=== PATIENT | male | born 1950 | race American Indian/Alaskan Native ===

== ENCOUNTER 2017-01-07 12:39 | Outpatient (CLI) | payer MEDICARE ==
[2017-01-07 13:23] LABS: Blood Urea Nitrogen 9 mg/dL (9-20)
[2017-01-07] MEDS ORDERED: NACL ONE (13:24)
--- NOTE | 2017-01-07 14:19 | Cat Scan Report ---
CT HEAD WITH AND WITHOUT CONTRAST INDICATION: Dizziness. Lung cancer. Evaluate for brain metastases. COMPARISON: 10/30/2016. FINDINGS: Pre-and post contrast head CT demonstrates stable age appropriate ventricle and sulci with mild periventricular and few white matter hypodense small vessel ischemic disease. No definite acute infarct, hemorrhage, mass effect or midline shift. No abnormal extra-axial masses or fluid collections. No suspicious abnormal enhancement. Normal posterior fossa with preserved basilar cisterns. Slight leftward nasal septal bowing and possibly partially imaged left-sided septal spur. Slight left ethmoid sinusitis. Otherwise clear paranasal sinuses and mastoid air cells. Atherosclerotic internal carotid artery calcifications. Normal calvarium and scalp. Edentulous jaw. Cervical spondylosis. CONCLUSION: No acute intracranial CT abnormality or significant interval change with age-appropriate atrophy and microvascular changes again noted, as described. Please correlate. Thank you for the opportunity to participate in this patient's care.
== END 2017-01-07 12:40 | disposition home or self-care (01) ==
LOC: CT 12:39
DX: C34.32 Malignant neoplasm of lower lobe, left bronchus or lung (principal); I25.10 Atherosclerotic heart disease of native coronary artery without angina pectoris; J32.2 Chronic ethmoidal sinusitis; M47.892 Other spondylosis, cervical region
CPT/HCPCS: 36415; 70470; 82565; 84520; Q9967

== ENCOUNTER 2017-04-30 07:04 | Outpatient (CLI) | payer MEDICARE ==
[2017-04-30] MEDS ORDERED: NACL ONE (07:46)
[2017-04-30 07:57] LABS: Blood Urea Nitrogen 7 mg/dL (9-20)
--- NOTE | 2017-04-30 09:12 | Cat Scan Report ---
CT CHEST WITH CONTRAST: HISTORY: Restaging of lung cancer. TECHNIQUE: Helical CT following IV contrast. Sagittal and coronal reformatted images. FINDINGS: Compared to 11/19/16. The left lower lobe mass has decreased from 3.3 x 2.2 x 5.4 cm to 3.2 x 2.1 x 5.1 cm. Small left pleural effusion has resolved. There are moderate emphysematous changes bilaterally. No evidence for new nodule, infiltrate or pneumothorax. The thyroid gland, tracheobronchial tree, esophagus, heart, pericardium and mediastinal vessels are unremarkable. No mediastinal adenopathy has developed. The bony structures are intact. No suspicious bony lesions is appreciated. No abnormalities are noted within the upper abdomen. The adrenal glands are normal. IMPRESSION: Slight interval decrease in size of the left lower lobe mass. A small left pleural effusion has resolved. No new acute process or new metastatic disease is appreciated.
== END 2017-04-30 07:05 | disposition home or self-care (01) ==
LOC: CT 07:04
DX: C34.32 Malignant neoplasm of lower lobe, left bronchus or lung (principal); F17.200 Nicotine dependence, unspecified, uncomplicated
CPT/HCPCS: 36415; 71260; 82565; 84520; Q9967

== ENCOUNTER 2017-08-24 10:52 | Outpatient (CLI) | payer MEDICARE ==
[2017-08-24 11:47] LABS: Blood Urea Nitrogen 7 mg/dL (9-20)
--- NOTE | 2017-08-24 14:30 | Cat Scan Report ---
CT CHEST WITH CONTRAST: HISTORY: Lung cancer. COMPARISON: 04/30/17. TECHNIQUE: Helical CT in 1.25mm intervals following IV contrast. Sagittal and coronal reformatted images. FINDINGS: Thyroid gland: Normal. Tracheobronchial tree: Normal. Esophagus: Normal. Heart: Normal. Pericardium: Normal. Mediastinum: Normal. Lung Rowe: The right lung is clear and well-aerated. There is compressive atelectasis throughout most of the left lung. Pleural Spaces: A very large left pleural effusion has developed which compresses 75% or greater of the left lung. Only a small portion of the left upper lobe is aerated. There is mild diffuse pleural thickening with enhancement which probably represents pleural metastasis. The previously described left lower lobe mass is poorly imaged on this exam secondary to complete atelectasis of the left lower lobe. Musculoskeletal: Normal. IMPRESSION: A large left pleural effusion has developed since 08/24/17. Diffuse left pleural metastasis are suspected. Left lower lobe mass is poorly imaged secondary to the collapsed left lower lobe.
== END 2017-08-24 10:53 | disposition home or self-care (01) ==
LOC: CT 10:52
DX: C34.32 Malignant neoplasm of lower lobe, left bronchus or lung (principal); J98.11 Atelectasis; J90 Pleural effusion, not elsewhere classified
CPT/HCPCS: 36415; 71260; 82565; 84520; Q9967

== ENCOUNTER 2017-09-01 11:53 | Inpatient (IN) | payer MEDICARE ==
[2017-09-01 13:34] LABS: Eosinophils % (Auto) 2.8 % (0.0-4.3)
[2017-09-01 13:42] LABS: INR 0.95 (0.87-1.13); Partial Thromboplastin Time 27.5 Sec. (24.2-36.6)
[2017-09-01 13:43] LABS: Hematocrit 45.8 % (35.5-45.6); Hemoglobin 15.3 gm/dl (11.8-15.2); Mean Corpuscular HGB Conc 33 % (32-34); Mean Corpuscular Hemoglobin 34 pg (28-32); Mean Corpuscular Volume 102 fl (84-94); Platelet Count 91 K/mm3 (140-440); Red Blood Count 4.48 M/mm3 (3.65-5.03); Red Cell Distribution Width 17.8 % (13.2-15.2); White Blood Count 5.3 K/mm3 (4.5-11.0)
[2017-09-01 13:55] LABS: Alanine Aminotransferase 29 units/L (7-56); Albumin 3.2 g/dL (3.9-5); Albumin/Globulin Ratio 0.8 %; Alkaline Phosphatase 194 units/L (35-129); Anion Gap 24 mmol/L; BUN/Creatinine Ratio 12; Bilirubin,Direct 0.5 mg/dL (0-0.2); Bilirubin,Indirect 0.7 mg/dL; Blood Urea Nitrogen 6 mg/dL (9-20); Calcium 8.7 mg/dL (8.4-10.2); Carbon Dioxide 25 mmol/L (22-30); Chloride 93.4 mmol/L (98-107); Glucose 97 mg/dL (75-100); Potassium 3.9 mmol/L (3.6-5.0); Sodium 138 mmol/L (137-145); Total Protein 7.1 g/dL (6.3-8.2)
[2017-09-01 14:22] LABS: Bilirubin,Urine NEG (Negative); Blood,Urine NEG (Negative); Ketones,Urine NEG (Negative); Leukocyte Esterase,Urine NEG (Negative); Nitrite,Urine NEG (Negative); Protein,Urine <15 mg/dL mg/dL (Negative)
--- NOTE | 2017-09-01 15:15 | XRay Report ---
AP CHEST : 09/01/17 11:53:00 CLINICAL: Hypertension. COMPARISON:08/24/17 CT chest FINDINGS: Near complete opacification of left hemithorax as seen on the recent chest CT which demonstrated a very large loculated left pleural effusion with compressive atelectasis of the left lung.. Some residual aeration in the left upper lobe. The right lung is normally expanded and relatively clear. No air space disease. The heart is normal size. Normal pulmonary vessels. A right [id number] with the tip in the distal SVC. IMPRESSION: A large left pleural effusion and near complete atelectasis of the left lung. No significant change since the recent CT chest.
[2017-09-01] MEDS ORDERED: PROVENTIL IH PRN (15:27)
[2017-09-01] MEDS ORDERED: MORPHINE IV PRN (15:27)
[2017-09-01] MEDS ORDERED: ZOFRAN IV PRN (15:27)
[2017-09-01] MEDS ORDERED: TYLENOL PO PRN (15:27)
--- NOTE | 2017-09-01 15:33 | Emergency Department Report ---
ED General Adult HPI - General Chief complaint: Dyspnea/Respdistress Stated complaint: FLUID ON LUNGS Time Seen by Provider: 09/01/17 12:51 Source: patient, EMS Mode of arrival: Stretcher Limitations: No Limitations - History of Present Illness Initial comments: Patient states that he had a CT of his chest performed here. It was actually done on September [address] GARCIA. He called Dr. GARCIA today was instructed to come to the emergency department. He tells me he's had some dizziness and some headache. He states the headache has been essentially generalized. He is not complaining of headache now. He was found to have a very large recurrent effusion (apparently malignant) in his left lung. He states that he does have dyspnea on exertion but not at rest. -: days(s) Location: left (left pleural effusion but patient not complaining of chest pain at this time.) Severity scale (0 -10): 0 Improves with: none Worsens with: none Associated Symptoms: headaches, shortness of breath - Related Data Previous Rx's Medication Instructions Recorded Last Taken Type ALBUTEROL Inhaler [ProAir HFA 2 puff IH QID PRN #1 applicator 12/19/15 Unknown Rx Inhaler] Folic Acid [Folvite] 1 mg PO QDAY #30 tablet 11/02/16 Unknown Rx Potassium Chloride [K-Dur] 40 meq PO QDAY 5 Days tablet 11/02/16 Unknown Rx Thiamine [Vitamin B-1] 100 mg PO QDAY #30 tablet 11/02/16 Unknown Rx Allergies Allergy/AdvReac Type Severity Reaction Status Date / Time No Known Allergies Allergy Verified 06/09/14 13:23 ED Review of Systems ROS: Stated complaint: FLUID ON LUNGS Other details as noted in HPI Constitutional: denies: chills, fever Eyes: denies: eye pain, eye discharge, vision change ENT: denies: ear pain, throat pain Respiratory: SOB with exertion. denies: cough, wheezing Cardiovascular: denies: chest pain, palpitations Endocrine: no symptoms reported Gastrointestinal: denies: abdominal pain, nausea, diarrhea Genitourinary: denies: urgency, dysuria Musculoskeletal: denies: back pain, joint swelling, arthralgia Skin: denies: rash, lesions Neurological: headache. denies: weakness, paresthesias Psychiatric: denies: anxiety, depression Hematological/Lymphatic: denies: easy bleeding, easy bruising ED Past Medical Hx - Past Medical History Previous Medical History?: Yes Hx Liver Disease: Yes Hx of Cancer: Yes (lung cancer pleural effus.) Hx HIV: No Additional medical history: Alcoholism; cirrosis of liver. right retinal hemorrhage - Surgical History Past Surgical History?: Yes Hx Cholecystectomy: Yes - Social History Smoking Status: Current Every Day Smoker Substance Use Type: None - Medications Home Medications: Home Medications Medication Instructions Recorded Confirmed Last Taken Type ALBUTEROL Inhaler [ProAir HFA 2 puff IH QID PRN #1 applicator 12/19/15 10/30/16 Unknown Rx Inhaler] Folic Acid [Folvite] 1 mg PO QDAY #30 tablet 11/02/16 Unknown Rx Potassium Chloride [K-Dur] 40 meq PO QDAY 5 Days tablet 11/02/16 Unknown Rx Thiamine [Vitamin B-1] 100 mg PO QDAY #30 tablet 11/02/16 Unknown Rx ED Physical Exam - General Limitations: No Limitations General appearance: alert, in no apparent distress, cachectic - Head Head exam: Present: atraumatic, normocephalic - Eye Eye exam: Present: normal appearance. Absent: scleral icterus - ENT ENT exam: Present: mucous membranes moist - Neck Neck exam: Present: normal inspection. Absent: tenderness, meningismus - Respiratory Respiratory exam: Present: decreased breath sounds (decreased breath sounds on the left). Absent: respiratory distress - Cardiovascular Cardiovascular Exam: Present: regular rate, normal rhythm. Absent: systolic murmur, diastolic murmur, rubs, gallop - GI/Abdominal GI/Abdominal exam: Present: soft, normal bowel sounds. Absent: distended, tenderness, guarding, rebound, rigid - Rectal Rectal exam: Present: deferred - Extremities Exam Extremities exam: Present: normal inspection - Back Exam Back exam: Present: normal inspection - Neurological Exam Neurological exam: Present: alert, oriented X3, CN II-XII intact. Absent: motor sensory deficit - Psychiatric Psychiatric exam: Present: normal affect, normal mood - Skin Skin exam: Present: warm, dry, intact, normal color. Absent: rash ED Course Vital Signs 09/01/17 09/01/17 09/01/17 12:15 13:38 13:39 Temperature Pulse Rate 107 H Respiratory 20 17 16 Rate Blood Pressure 107/76 Blood Pressure [Right] O2 Sat by Pulse 96 95 Oximetry 09/01/17 09/01/17 09/01/17 13:45 14:00 14:01 Temperature 97.9 F Pulse Rate 94 H 99 H 100 H Respiratory 15 20 16 Rate Blood Pressure 96/64 104/71 Blood Pressure 99/72 [Right] O2 Sat by Pulse 96 90 95 Oximetry - Reevaluation(s) Reevaluation #1: Patient is found to have a large presumably malignant effusion. He is admitted to the hospitalist service for drainage. In addition a CT of his head is ordered to help work up his symptoms of dizziness and headache. 09/01/17 15:31 09/01/17 15:33 CT with contrast is ordered. ED Medical Decision Making - Lab Data Result diagrams: 09/01/17 12:57 09/01/17 12:57 Laboratory Results - last 24 hr 09/01/17 09/01/17 09/01/17 12:57 12:57 12:57 WBC 5.3 RBC 4.48 Hgb 15.3 H Hct 45.8 H MCV 102 H MCH 34 H MCHC 33 RDW 17.8 H Plt Count 91 L Lymph % (Auto) 41.2 H [place] % (Auto) 10.7 H Eos % (Auto) 2.8 Baso % (Auto) 0.0 Lymph # 1.8 [place] # 0.5 Eos # 0.1 Baso # 0.0 Seg Neutrophils % 44.5 Seg Neutrophils # 1.9 PT 13.1 INR 0.95 APTT 27.5 Sodium 138 Potassium 3.9 Chloride 93.4 L Carbon Dioxide 25 Anion Gap 24 BUN 6 L Creatinine 0.5 L Estimated GFR > 60 BUN/Creatinine Ratio 12 Glucose 97 Calcium 8.7 Magnesium 2.00 Total Bilirubin 1.20 Direct Bilirubin 0.5 H Indirect Bilirubin 0.7 AST 144 H ALT 29 Alkaline Phosphatase 194 H NT-Pro-B Natriuret Pep 91.84 Total Protein 7.1 Albumin 3.2 L Albumin/Globulin Ratio 0.8 Urine Color Urine Turbidity Urine pH Ur Specific [place] Urine Protein Urine Glucose (UA) Urine Ketones Urine Blood Urine Nitrite Urine Bilirubin Urine Urobilinogen Ur Leukocyte Esterase Urine WBC (Auto) Urine RBC (Auto) Blood Type Antibody Screen 09/01/17 09/01/17 12:57 13:35 WBC RBC Hgb Hct MCV MCH MCHC RDW Plt Count Lymph % (Auto) [place] % (Auto) Eos % (Auto) Baso % (Auto) Lymph # [place] # Eos # Baso # Seg Neutrophils % Seg Neutrophils # PT INR APTT Sodium Potassium Chloride Carbon Dioxide Anion Gap BUN Creatinine Estimated GFR BUN/Creatinine Ratio Glucose Calcium Magnesium Total Bilirubin Direct Bilirubin Indirect Bilirubin AST ALT Alkaline Phosphatase NT-Pro-B Natriuret Pep Total Protein Albumin Albumin/Globulin Ratio Urine Color Yellow Urine Turbidity Clear Urine pH 6.0 Ur Specific [place] 1.008 Urine Protein <15 mg/dl Urine Glucose (UA) Neg Urine Ketones Neg Urine Blood Neg Urine Nitrite Neg Urine Bilirubin Neg Urine Urobilinogen 2.0 Ur Leukocyte Esterase Neg Urine WBC (Auto) 1.0 Urine RBC (Auto) 1.0 Blood Type O POSITIVE Antibody Screen Negative - EKG Data -: EKG Interpreted by Me EKG shows normal: sinus rhythm - EKG Data Interpretation: other (somewhat low voltage. Specific repolarization abnormality normal axis.) - Radiology Data interpreted by me: Large left pleural effusion Critical care attestation.: If time is entered above; I have spent that time in minutes in the direct care of this critically ill patient, excluding procedure time. ED Disposition Clinical Impression: Pleural effusion on left, Dizziness, Thrombocytopenia Metastatic lung cancer (metastasis from lung to other site) Qualifiers: Laterality: left Qualified Code(s): C34.92 - Malignant neoplasm of unspecified part of left bronchus or lung Cephalalgia Qualifiers: Headache type: unspecified Headache chronicity pattern: acute headache Intractability: not intractable Qualified Code(s): R51 - Headache Disposition: OP ADMIT IP TO THIS HOSP Is pt being admited?: Yes Does the pt Need Aspirin: No (held due to thrombocytopenia) Condition: Stable Time of Disposition: 15:38
--- NOTE | 2017-09-01 16:12 | History and Physical Report ---
History of Present Illness Date of admission: 09/01/17 15:27 Chief complaint: My doctor told me to come in. History of present illness: 67 YO Male with Lung Cancer, ETOH Abuse, cirrhosis, Liver disease, Nicotine Dependence presents to ED for evaluation. Pt states that he underwent a CT scan of his chest, on September 24 which was ordered by Dr. GARCIA. Pt was notified today by Dr. GARCIA today that he has a large amount of fluid in the left lung, and was advised to seek medical attention at [facility]. Pt denies fever, chills, CP, Palpitations, NVD, Syncope, Productive cough, or recent ill contacts. Pt denies any new symptoms at time of exam. Pt seen and evaluated in ED and found to have large left pleural effusion. Past History Past Medical History: cancer, other (Cirrhosis) Past Surgical History: cholecystectomy Social history: , smoking, alcohol abuse Family history: hypertension Medications and Allergies Allergies Allergy/AdvReac Type Severity Reaction Status Date / Time No Known Allergies Allergy Verified 06/09/14 13:23 Home Medications Medication Instructions Recorded Confirmed Last Taken Type No Known Home Medications [No 09/01/17 09/01/17 Unknown History Reported Home Medications] Active Meds: Active Medications Acetaminophen (Tylenol) 650 mg PO Q4H PRN PRN Reason: Pain MILD(1-3)/Fever >100.5/TRAVIS Albuterol (Proventil) 2.5 mg IH Q4HRT PRN PRN Reason: Shortness Of Breath Morphine Sulfate (Morphine) 2 mg IV Q4H PRN PRN Reason: Pain, Moderate (4-6) Ondansetron HCl (Zofran) 4 mg IV Q8H PRN PRN Reason: N/V unrelieved by Reglan Review of Systems Constitutional: no weight loss, no weight gain, no fever, no chills Ears, nose, mouth and throat: no ear pain, no ear discharge, no tinnitis, no decreased hearing, no nose pain, no nasal congestion, no nasal discharge Cardiovascular: no chest pain, no orthopnea, no palpitations, no rapid/ irregular heart beat, no edema, no syncope Respiratory: no cough, no cough with sputum, no excessive sputum, no hemoptysis , no shortness of breath Gastrointestinal: no abdominal pain, no nausea, no vomiting, no diarrhea, no constipation Genitourinary Male: no dysuria, no hematuria, no flank pain, no discharge, no urinary frequency, no urinary hesitancy, no nocturia, no incontinence Rectal: no pain, no incontinence, no bleeding Musculoskeletal: no neck stiffness, no neck pain, no shooting arm pain, no arm numbness/tingling, no low back pain, no shooting leg pain Integumentary: no rash, no pruritis, no redness, no sores, no wounds, no jaundice Neurological: no head injury, no transient paralysis, no paralysis, no weakness , no parathesias, no numbness, no tingling Psychiatric: no anxiety, no memory loss, no change in sleep habits, no sleep disturbances, no insomnia, no hypersomnia, no change in appetite Endocrine: no cold intolerance, no heat intolerance, no polyphagia, no excessive thirst, no polydipsia Exam - Constitutional Vitals: Temp Pulse Resp BP Pulse Ox 97.9 F 97 H 19 97/69 97 09/01/17 14:01 09/01/17 15:45 09/01/17 15:45 09/01/17 15:45 09/01/17 15:30 General appearance: Present: mild distress, cachectic - EENT Eyes: Present: PERRL ENT: hearing intact, clear oral mucosa - Neck Neck: Present: supple, normal ROM - Respiratory Respiratory effort: normal Respiratory: left: diminished, bilateral: CTA - Cardiovascular Heart Sounds: Present: S1 & S2. Absent: rub, click - Extremities Extremities: pulses symmetrical, No edema Peripheral Pulses: within normal limits - Abdominal General gastrointestinal: Present: soft, non-tender, non-distended, normal bowel sounds Male genitourinary: Present: normal - Integumentary Integumentary: Present: clear, warm, dry - Musculoskeletal Musculoskeletal: gait normal, strength equal bilaterally - Psychiatric Psychiatric: appropriate mood/affect, intact judgment & insight - Neurologic Neurologic: CNII-XII intact, moves all extremities Results - Labs CBC & Chem 7: 09/01/17 12:57 09/01/17 12:57 Labs: Abnormal lab results 09/01/17 09/01/17 Range/Units 12:57 12:57 Hgb 15.3 H (11.8-15.2) gm/dl Hct 45.8 H (35.5-45.6) % MCV 102 H (84-94) fl MCH 34 H (28-32) pg RDW 17.8 H (13.2-15.2) % Plt Count 91 L (140-440) K/mm3 Lymph % (Auto) 41.2 H (13.4-35.0) % [place] % (Auto) 10.7 H (0.0-7.3) % Chloride 93.4 L (98-107) mmol/L BUN 6 L (9-20) mg/dL Creatinine 0.5 L (0.8-1.5) mg/dL Direct Bilirubin 0.5 H (0-0.2) mg/dL AST 144 H (5-40) units/L Alkaline Phosphatase 194 H (35-129) units/L Albumin 3.2 L (3.9-5) g/dL Assessment and Plan - Patient Problems (1) Respiratory failure Current Visit: Yes Status: Acute Plan to address problem: supplemental oxygen, nebs, aspiration precautions, supportive care. Chest X ray , (2) Metastatic lung cancer (metastasis from lung to other site) Current Visit: Yes Status: Acute Qualifiers: Laterality: left Qualified Code(s): C34.92 - Malignant neoplasm of unspecified part of left bronchus or lung Plan to address problem: Metastatic Cancer with Left Pleural Effusion: Pulmonary consulted, supplemental oxygen, nebs, IR consulted for thoracentesis, (3) Pleural effusion on left Current Visit: Yes Status: Acute Plan to address problem: IR consulted, for thoracentesis, Pulmonary consulted, (4) Alcohol abuse Current Visit: No Status: Chronic Plan to address problem: CIWA protocol, thiamine, folic acid, multivitamin (5) Alcoholic cirrhosis Current Visit: No Status: Chronic Qualifiers: Ascites presence: without ascites Qualified Code(s): K70.30 - Alcoholic cirrhosis of liver without ascites Plan to address problem: supportive care, fluid restriction, (6) DVT prophylaxis Current Visit: Yes Status: Acute
[2017-09-01] MEDS ORDERED: ATIVAN IV PRN (16:32)
--- NOTE | 2017-09-01 17:39 | Cat Scan Report ---
FINAL REPORT PROCEDURE: CT HEAD/BRAIN WO/W CON TECHNIQUE: Computerized axial tomography of the head was performed before and after the IV injection of iodinated nonionic contrast. HISTORY: dizziness, headache, low platelets, lung cancer COMPARISON: 12/13/2015 TECHNICAL QUALITY: Satisfactory. FINDINGS: Skull base, calvarium, and scalp: Normal . Paranasal sinuses: The visualized paranasal sinuses are clear. Cerebellum and brainstem: No evidence of hemorrhage, ischemia or mass . Cerebrum: No evidence of hemorrhage, ischemia or mass . Ventricles: Normal in size and morphology for the patient's age . Vasculature: Possible narrowing of the distal right vertebral artery axial image 6. If there is concern of possible vertebrobasilar insufficiency syndrome consider CTA study to further evaluate. Other: Moderate diffuse atrophy with mild low attenuated microischemic change deep white matter.. No abnormal enhancement IMPRESSION: No acute intracranial pathology. No abnormal enhancement. Possible mild narrowing of the distal right vertebral artery
[2017-09-02] MEDS: THERAGRAN Tab PO SCH ×2 (08:48→13:43)
[2017-09-02] MEDS: FOLVITE PO SCH ×2 (08:48→13:43)
[2017-09-02] MEDS: VITAMIN B-1 PO SCH ×2 (08:49→13:43)
--- NOTE | 2017-09-02 08:50 | Progress Note ---
<PAMELA CATALAN - Last Filed: 09/02/17 13:43> Assessment and Plan Assessment and plan: Patient is a 67 years old Male with Lung Cancer, ETOH Abuse, cirrhosis, Liver disease, Nicotine Dependence presents to ED for evaluation. Acute respiratory failure with hypoxia Patient oxygen saturation improved with 2LNC; currently SPO2 98%. No acute respiratory distress noted. Aggressive Nebulizers/Inhalers ABG when necessary Oxygen supplement Supportive care Metastatic lung cancer Metastatic Cancer with Left Pleural Effusion: Pulmonary consulted, supplemental Nebulizers/Inhalers IR consulted for thoracentesis, Pleural effusion on left IR consulted, for thoracentesis, Pulmonary consulted, Alcohol abuse CIWA protoco Continue thiamine, folic acid, multivitamin Supportive care Malnutition Nutritional consult Alcoholic cirrhosis Fluid restriction supportive care, Hypertensive urgency Continue home antihypertensive medications Closely monitor blood pressure DVT prophylaxis Heparin History Interval history: Patient denies having any pain; Labs and nursing notes reviewed. Hospitalist Physical - Constitutional Vitals: Temp Pulse Resp BP Pulse Ox 99.8 F H 108 H 19 104/73 96 09/02/17 07:37 09/02/17 07:37 09/02/17 07:37 09/02/17 07:37 09/02/17 07:37 General appearance: Present: mild distress, cachectic - EENT Eyes: Present: PERRL ENT: hearing intact - Neck Neck: Present: supple - Respiratory Respiratory effort: normal Respiratory: bilateral: CTA - Cardiovascular Rhythm: regular Heart Sounds: Present: S1 & S2 - Abdominal General gastrointestinal: soft, non-tender - Integumentary Integumentary: Present: clear, warm, dry - Psychiatric Psychiatric: appropriate mood/affect - Neurologic Neurologic: moves all extremities - Allied Health Allied health notes reviewed: nursing Results - Labs CBC & Chem 7: 09/02/17 09:24 09/01/17 12:57 Labs: Laboratory Last Values WBC 5.3 K/mm3 (4.5-11.0) 09/01/17 12:57 RBC 4.48 M/mm3 (3.65-5.03) 09/01/17 12:57 Hgb 15.3 gm/dl (11.8-15.2) H 09/01/17 12:57 Hct 45.8 % (35.5-45.6) H 09/01/17 12:57 MCV 102 fl (84-94) H 09/01/17 12:57 MCH 34 pg (28-32) H 09/01/17 12:57 MCHC 33 % (32-34) 09/01/17 12:57 RDW 17.8 % (13.2-15.2) H 09/01/17 12:57 Plt Count 91 K/mm3 (140-440) L 09/01/17 12:57 Lymph % (Auto) 41.2 % (13.4-35.0) H 09/01/17 12:57 [place] % (Auto) 10.7 % (0.0-7.3) H 09/01/17 12:57 Eos % (Auto) 2.8 % (0.0-4.3) 09/01/17 12:57 Baso % (Auto) 0.0 % (0.0-1.8) 09/01/17 12:57 Lymph # 1.8 K/mm3 (1.2-5.4) 09/01/17 12:57 [place] # 0.5 K/mm3 (0.0-0.8) 09/01/17 12:57 Eos # 0.1 K/mm3 (0.0-0.4) 09/01/17 12:57 Baso # 0.0 K/mm3 (0.0-0.1) 09/01/17 12:57 Seg Neutrophils % 44.5 % (40.0-70.0) 09/01/17 12:57 Seg Neutrophils # 1.9 K/mm3 (1.8-7.7) 09/01/17 12:57 PT 13.1 Sec. (12.2-14.9) 09/01/17 12:57 INR 0.95 (0.87-1.13) 09/01/17 12:57 APTT 27.5 Sec. (24.2-36.6) 09/01/17 12:57 Sodium 138 mmol/L (137-145) 09/01/17 12:57 Potassium 3.9 mmol/L (3.6-5.0) 09/01/17 12:57 Chloride 93.4 mmol/L (98-107) L 09/01/17 12:57 Carbon Dioxide 25 mmol/L (22-30) 09/01/17 12:57 Anion Gap 24 mmol/L 09/01/17 12:57 BUN 6 mg/dL (9-20) L 09/01/17 12:57 Creatinine 0.5 mg/dL (0.8-1.5) L 09/01/17 12:57 Estimated GFR > 60 ml/min 09/01/17 12:57 BUN/Creatinine Ratio 12 % 09/01/17 12:57 Glucose 97 mg/dL (75-100) 09/01/17 12:57 Calcium 8.7 mg/dL (8.4-10.2) 09/01/17 12:57 Magnesium 2.00 mg/dL (1.7-2.3) 09/01/17 12:57 Total Bilirubin 1.20 mg/dL (0.1-1.2) 09/01/17 12:57 Direct Bilirubin 0.5 mg/dL (0-0.2) H 09/01/17 12:57 Indirect Bilirubin 0.7 mg/dL 09/01/17 12:57 AST 144 units/L (5-40) H 09/01/17 12:57 ALT 29 units/L (7-56) 09/01/17 12:57 Alkaline Phosphatase 194 units/L (35-129) H 09/01/17 12:57 NT-Pro-B Natriuret Pep 91.84 pg/mL (0-900) 09/01/17 12:57 Total Protein 7.1 g/dL (6.3-8.2) 09/01/17 12:57 Albumin 3.2 g/dL (3.9-5) L 09/01/17 12:57 Albumin/Globulin Ratio 0.8 % 09/01/17 12:57 Urine Color Yellow (Yellow) 09/01/17 13:35 Urine Turbidity Clear (Clear) 09/01/17 13:35 Urine pH 6.0 (5.0-7.0) 09/01/17 13:35 Ur Specific [place] 1.008 (1.003-1.030) 09/01/17 13:35 Urine Protein <15 mg/dl mg/dL (Negative) 09/01/17 13:35 Urine Glucose (UA) Neg mg/dL (Negative) 09/01/17 13:35 Urine Ketones Neg mg/dL (Negative) 09/01/17 13:35 Urine Blood Neg (Negative) 09/01/17 13:35 Urine Nitrite Neg (Negative) 09/01/17 13:35 Urine Bilirubin Neg (Negative) 09/01/17 13:35 Urine Urobilinogen 2.0 mg/dL (<2.0) 09/01/17 13:35 Ur Leukocyte Esterase Neg (Negative) 09/01/17 13:35 Urine WBC (Auto) 1.0 /HPF (0.0-6.0) 09/01/17 13:35 Urine RBC (Auto) 1.0 /HPF (0.0-6.0) 09/01/17 13:35 Blood Type O POSITIVE 09/01/17 12:57 Antibody Screen Negative 09/01/17 12:57 <MARITZA GR - Last Filed: 09/02/17 17:28> History Interval history: I saw and evaluated the patient. I agree with the findings and the plan of care as documented in the Nurse Practitioner's~note, with the following corrections and additions. Patient has large left pleural effusion, s/p thoracentesis today. Continue current management. Hospitalist Physical - Constitutional Vitals: Temp Pulse Resp BP Pulse Ox 99.6 F 115 H 19 104/71 95 09/02/17 15:35 09/02/17 15:35 09/02/17 15:35 09/02/17 15:35 09/02/17 15:35 Results - Labs CBC & Chem 7: 09/02/17 09:24 09/01/17 12:57 Labs: Laboratory Last Values WBC 5.0 K/mm3 (4.5-11.0) 09/02/17 09:24 RBC 4.32 M/mm3 (3.65-5.03) 09/02/17 09:24 Hgb 14.9 gm/dl (11.8-15.2) 09/02/17 09:24 Hct 44.3 % (35.5-45.6) 09/02/17 09:24 MCV 102 fl (84-94) H 09/02/17 09:24 MCH 34 pg (28-32) H 09/02/17 09:24 MCHC 34 % (32-34) 09/02/17 09:24 RDW 17.8 % (13.2-15.2) H 09/02/17 09:24 Plt Count 85 K/mm3 (140-440) L 09/02/17 09:24 Lymph % (Auto) 22.8 % (13.4-35.0) 09/02/17 09:24 [place] % (Auto) 9.4 % (0.0-7.3) H 09/02/17 09:24 Eos % (Auto) 1.1 % (0.0-4.3) 09/02/17 09:24 Baso % (Auto) 0.8 % (0.0-1.8) 09/02/17 09:24 Lymph # 1.1 K/mm3 (1.2-5.4) L 09/02/17 09:24 [place] # 0.5 K/mm3 (0.0-0.8) 09/02/17 09:24 Eos # 0.1 K/mm3 (0.0-0.4) 09/02/17 09:24 Baso # 0.0 K/mm3 (0.0-0.1) 09/02/17 09:24 Seg Neutrophils % 65.9 % (40.0-70.0) 09/02/17 09:24 Seg Neutrophils # 3.3 K/mm3 (1.8-7.7) 09/02/17 09:24 PT 13.1 Sec. (12.2-14.9) 09/02/17 09:24 INR 0.95 (0.87-1.13) 09/02/17 09:24 APTT 28.1 Sec. (24.2-36.6) 09/02/17 09:24 Sodium 138 mmol/L (137-145) 09/01/17 12:57 Potassium 3.9 mmol/L (3.6-5.0) 09/01/17 12:57 Chloride 93.4 mmol/L (98-107) L 09/01/17 12:57 Carbon Dioxide 25 mmol/L (22-30) 09/01/17 12:57 Anion Gap 24 mmol/L 09/01/17 12:57 BUN 6 mg/dL (9-20) L 09/01/17 12:57 Creatinine 0.5 mg/dL (0.8-1.5) L 09/01/17 12:57 Estimated GFR > 60 ml/min 09/01/17 12:57 BUN/Creatinine Ratio 12 % 09/01/17 12:57 Glucose 97 mg/dL (75-100) 09/01/17 12:57 Calcium 8.7 mg/dL (8.4-10.2) 09/01/17 12:57 Magnesium 2.00 mg/dL (1.7-2.3) 09/01/17 12:57 Total Bilirubin 1.20 mg/dL (0.1-1.2) 09/01/17 12:57 Direct Bilirubin 0.5 mg/dL (0-0.2) H 09/01/17 12:57 Indirect Bilirubin 0.7 mg/dL 09/01/17 12:57 AST 144 units/L (5-40) H 09/01/17 12:57 ALT 29 units/L (7-56) 09/01/17 12:57 Alkaline Phosphatase 194 units/L (35-129) H 09/01/17 12:57 NT-Pro-B Natriuret Pep 91.84 pg/mL (0-900) 09/01/17 12:57 Total Protein 7.1 g/dL (6.3-8.2) 09/01/17 12:57 Albumin 3.2 g/dL (3.9-5) L 09/01/17 12:57 Albumin/Globulin Ratio 0.8 % 09/01/17 12:57 Urine Color Yellow (Yellow) 09/01/17 13:35 Urine Turbidity Clear (Clear) 09/01/17 13:35 Urine pH 6.0 (5.0-7.0) 09/01/17 13:35 Ur Specific [place] 1.008 (1.003-1.030) 09/01/17 13:35 Urine Protein <15 mg/dl mg/dL (Negative) 09/01/17 13:35 Urine Glucose (UA) Neg mg/dL (Negative) 09/01/17 13:35 Urine Ketones Neg mg/dL (Negative) 09/01/17 13:35 Urine Blood Neg (Negative) 09/01/17 13:35 Urine Nitrite Neg (Negative) 09/01/17 13:35 Urine Bilirubin Neg (Negative) 09/01/17 13:35 Urine Urobilinogen 2.0 mg/dL (<2.0) 09/01/17 13:35 Ur Leukocyte Esterase Neg (Negative) 09/01/17 13:35 Urine WBC (Auto) 1.0 /HPF (0.0-6.0) 09/01/17 13:35 Urine RBC (Auto) 1.0 /HPF (0.0-6.0) 09/01/17 13:35 Blood Type O POSITIVE 09/01/17 12:57 Antibody Screen Negative 09/01/17 12:57
--- NOTE | 2017-09-02 09:16 | Hem/Onc Consultation ---
History of Present Illness - Reason for Consult Consult date: 09/02/17 - History of Present Illness Patient is a 67-year-old male who in 2016 was diagnosed with non-small cell lung cancer. It was an adenocarcinoma. All the information is gathered from the hospital chart since the patient is not able to give a good history. He has been on chemotherapy for some time he states but has recently been switched to another therapy which she got 1 dose of. I presume that his immunotherapy. Patient had a CT scan on 08/24/2017 and it showed a very large left-sided pleural effusion and he was asked to come to the emergency room. Patient has had increasing shortness of breath. He also has had bouts where he falls down. He states he gets very weak and short of breath. He also has difficulty swallowing but that has been going on for a long time. He has had some weight loss. In the emergency room patient did get a CT of the head yesterday which did not show any metastatic disease. Past History Past Medical History: cancer, other (Cirrhosis) Past Surgical History: cholecystectomy Social history: , smoking, alcohol abuse Family history: hypertension Medications and Allergies Allergies Allergy/AdvReac Type Severity Reaction Status Date / Time No Known Allergies Allergy Verified 06/09/14 13:23 Home Medications Medication Instructions Recorded Confirmed Last Taken Type No Known Home Medications [No 09/01/17 09/01/17 Unknown History Reported Home Medications] Active Meds: Active Medications Acetaminophen (Tylenol) 650 mg PO Q4H PRN PRN Reason: Pain MILD(1-3)/Fever >100.5/TRAVIS Albuterol (Proventil) 2.5 mg IH Q4HRT PRN PRN Reason: Shortness Of Breath Folic Acid (Folvite) 1 mg PO QDAY [facility] Last Admin: 09/02/17 08:48 Dose: Not Given Lorazepam (Ativan) 2 mg IV Q1HR PRN PRN Reason: CIWA-Ar 8-15 Morphine Sulfate (Morphine) 2 mg IV Q4H PRN PRN Reason: Pain, Moderate (4-6) Multivitamins (Theragran Tab) 1 each PO QDAY [facility] Last Admin: 09/02/17 08:48 Dose: Not Given Ondansetron HCl (Zofran) 4 mg IV Q8H PRN PRN Reason: N/V unrelieved by Payal Thiamine HCl (Vitamin B-1) 100 mg PO QDAY [facility] Last Admin: 09/02/17 08:49 Dose: Not Given Review of Systems Constitutional: weight loss, fatigue, weakness Respiratory: cough, shortness of breath Gastrointestinal: early satiety, other (dysphagia dysphagia) Exam - Exam Narrative Exam: Cachectic - Constitutional Vitals: Last Vital Signs Temp 99.8 F H 09/02/17 07:37 Pulse 108 H 09/02/17 07:37 Resp 19 09/02/17 07:37 BP 104/73 09/02/17 07:37 Pulse Ox 96 09/02/17 07:37 General appearance: mild distress Performance status: 3-limited selfcare - Neck Neck: supple - Respiratory Respiratory: left: diminished - Cardiovascular Rhythm: regular Extremities: No edema - Gastrointestinal General gastrointestinal: Present: soft Results - Labs lab Results: Laboratory Results - last 24 hr 09/01/17 09/01/17 09/01/17 12:57 12:57 12:57 WBC 5.3 RBC 4.48 Hgb 15.3 H Hct 45.8 H MCV 102 H MCH 34 H MCHC 33 RDW 17.8 H Plt Count 91 L Lymph % (Auto) 41.[address] [place] % (Auto) 10.7 H Eos % (Auto) 2.8 Baso % (Auto) 0.0 Lymph # 1.8 [place] # 0.5 Eos # 0.1 Baso # 0.0 Seg Neutrophils % 44.5 Seg Neutrophils # 1.9 PT 13.1 INR 0.95 APTT 27.5 Sodium 138 Potassium 3.9 Chloride 93.4 L Carbon Dioxide 25 Anion Gap 24 BUN 6 L Creatinine 0.5 L Estimated GFR > 60 BUN/Creatinine Ratio 12 Glucose 97 Calcium 8.7 Magnesium 2.00 Total Bilirubin 1.20 Direct Bilirubin 0.5 H Indirect Bilirubin 0.7 AST 144 H ALT 29 Alkaline Phosphatase 194 H NT-Pro-B Natriuret Pep 91.84 Total Protein 7.1 Albumin 3.2 L Albumin/Globulin Ratio 0.8 Urine Color Urine Turbidity Urine pH Ur Specific [place] Urine Protein Urine Glucose (UA) Urine Ketones Urine Blood Urine Nitrite Urine Bilirubin Urine Urobilinogen Ur Leukocyte Esterase Urine WBC (Auto) Urine RBC (Auto) Blood Type Antibody Screen 09/01/17 09/01/17 12:57 13:35 WBC RBC Hgb Hct MCV MCH MCHC RDW Plt Count Lymph % (Auto) [place] % (Auto) Eos % (Auto) Baso % (Auto) Lymph # [place] # Eos # Baso # Seg Neutrophils % Seg Neutrophils # PT INR APTT Sodium Potassium Chloride Carbon Dioxide Anion Gap BUN Creatinine Estimated GFR BUN/Creatinine Ratio Glucose Calcium Magnesium Total Bilirubin Direct Bilirubin Indirect Bilirubin AST ALT Alkaline Phosphatase NT-Pro-B Natriuret Pep Total Protein Albumin Albumin/Globulin Ratio Urine Color Yellow Urine Turbidity Clear Urine pH 6.0 Ur Specific [place] 1.008 Urine Protein <15 mg/dl Urine Glucose (UA) Neg Urine Ketones Neg Urine Blood Neg Urine Nitrite Neg Urine Bilirubin Neg Urine Urobilinogen 2.0 Ur Leukocyte Esterase Neg Urine WBC (Auto) 1.0 Urine RBC (Auto) 1.0 Blood Type O POSITIVE Antibody Screen Negative Assessment and Plan At this time we will order ultrasound-guided pleurocentesis. Monitor counts. Once stable, he can be discharged and follow up with Dr. GARCIA. We will send fluid for cytology
[2017-09-02 10:00] LABS: Basophils % (Auto) 0.8 % (0.0-1.8); Eosinophils % (Auto) 1.1 % (0.0-4.3); Hematocrit 44.3 % (35.5-45.6); Hemoglobin 14.9 gm/dl (11.8-15.2); Mean Corpuscular HGB Conc 34 % (32-34); Mean Corpuscular Hemoglobin 34 pg (28-32); Mean Corpuscular Volume 102 fl (84-94); Red Blood Count 4.32 M/mm3 (3.65-5.03); Red Cell Distribution Width 17.8 % (13.2-15.2)
[2017-09-02 10:02] LABS: Platelet Count 85 K/mm3 (140-440)
[2017-09-02 10:09] LABS: INR 0.95 (0.87-1.13)
[2017-09-02 10:10] LABS: Partial Thromboplastin Time 28.1 Sec. (24.2-36.6)
--- NOTE | 2017-09-02 15:19 | Procedure Note ---
Date of procedure: 09/02/17 Pre-op diagnosis: left pleural effusion Post-op diagnosis: same Procedure: US thoracentesis Findings: large left pleural effusion Anesthesia: local Surgeon: CAPO SAENZ Estimated blood loss: none Pathology: list (120cc) Specimen disposition: to lab Condition: stable Disposition: floor
--- NOTE | 2017-09-02 15:25 | Ultrasound Report ---
ULTRASOUND THORACENTESIS History: Left pleural effusion Description of procedure: Informed consent was obtained. Sterile technique was utilized. 1% lidocaine for skin anesthesia. Using ultrasound guidance, a 5 [place] centesis catheter was advanced into the left pleural space. 2 L of bloody fluid was aspirated. 120 cc of fluid was sent to the lab for analysis. No complications. Impression: Successful ultrasound-guided left thoracentesis. 2 L of bloody fluid was removed.
--- NOTE | 2017-09-02 23:13 | XRay Report ---
FINAL REPORT PROCEDURE: XR CHEST 1V AP TECHNIQUE: Chest radiograph anteroposterior view. CPT 80337 HISTORY: sob, recent thoracentesis COMPARISON: No prior studies are available for comparison. FINDINGS: Heart: Normal. Mediastinum/Vessels: Mediastinum is shifted mildly to the right.. Lungs/Pleural space: About 40 percent left-sided pneumothorax is noted. There is blunting of left costophrenic angle. Mild blunting of right costophrenic angle is noted. Right lung is clear. Left lung demonstrates moderate degree collapse secondary to pneumothorax.. Bony thorax: No acute osseous abnormality. Life support devices: None. IMPRESSION: About 40 percent left-sided pneumothorax with evidence of tension component. There is also mild degree left pleural effusion. Minimal right pleural effusion is noted..
--- NOTE | 2017-09-03 00:40 | Event Note ---
Date: 09/03/17 Informed by the nurse of the chest x-ray result showing tension pneumothorax Case discussed cause with Dr. Marcum Does not think the patient has tension pneumothorax since he is asymptomatic patient hemodynamically stable
[2017-09-03 07:30] LABS: Hematocrit 43.2 % (35.5-45.6); Hemoglobin 14.4 gm/dl (11.8-15.2); Mean Corpuscular HGB Conc 33 % (32-34); Mean Corpuscular Hemoglobin 35 pg (28-32); Mean Corpuscular Volume 103 fl (84-94); Red Blood Count 4.18 M/mm3 (3.65-5.03); Red Cell Distribution Width 17.1 % (13.2-15.2); White Blood Count 6.7 K/mm3 (4.5-11.0)
[2017-09-03 07:33] LABS: Platelet Count 70 K/mm3 (140-440)
[2017-09-03] MEDS: VITAMIN B-1 PO SCH (09:30)
[2017-09-03] MEDS: FOLVITE PO SCH (09:30)
[2017-09-03] MEDS: THERAGRAN Tab PO SCH (09:31)
--- NOTE | 2017-09-03 09:33 | XRay Report ---
AP CHEST at 0910 hours: HISTORY: Followup left pneumothorax, shortness of breath A moderate size left pneumothorax estimated at 40% has not significantly changed since yesterday's exam at 1646 hrs. There are mild atelectatic changes at the left lung base. The right lung remains generally clear. Heart size is stable and within normal limits. IMPRESSION: No change in the moderate left pneumothorax.
[2017-09-03] MEDS: LOPRESSOR PO SCH ×2 (09:59→21:08)
--- NOTE | 2017-09-03 12:24 | Hem/Onc Progress Note ---
Assessment and Plan awaiting pulm eval.CBC sl low plts Once stable, he can be discharged and follow up with Dr. GARCIA. Subjective Date of service: 09/03/17 Interval history: pt states he wants to go home. his sob has improved. events noted. he has 40% pneumo repeat cxr unchanged Objective - Exam Narrative Exam: Cachectic - Constitutional Vitals: Last Vital Signs Temp 98.5 F 09/03/17 11:20 Pulse 85 09/03/17 11:20 Resp 20 09/03/17 11:20 BP 91/65 09/03/17 11:20 Pulse Ox 98 09/03/17 11:20 General appearance: no acute distress Performance status: 3-limited selfcare - Neck Neck: supple - Respiratory Respiratory: left: diminished - Cardiovascular Rhythm: regular Extremities: No edema - Gastrointestinal General gastrointestinal: Present: soft - Labs Lab Results: Laboratory Results - last 24 hr 09/03/17 07:05 WBC 6.7 RBC 4.18 Hgb 14.4 Hct 43.2 MCV 103 H MCH 35 H MCHC 33 RDW 17.1 H Plt Count 70 L
--- NOTE | 2017-09-03 12:27 | Progress Note ---
<BRAYANJUSTINOMARITZA - Last Filed: 09/03/17 12:27> Hospitalist Physical - Constitutional Vitals: Temp Pulse Resp BP Pulse Ox 98.5 F 85 20 91/65 98 09/03/17 11:20 09/03/17 11:20 09/03/17 11:20 09/03/17 11:20 09/03/17 11:20 General appearance: Present: mild distress, cachectic Results - Labs CBC & Chem 7: 09/03/17 07:05 09/01/17 12:57 Labs: Laboratory Last Values WBC 6.7 K/mm3 (4.5-11.0) 09/03/17 07:05 RBC 4.18 M/mm3 (3.65-5.03) 09/03/17 07:05 Hgb 14.4 gm/dl (11.8-15.2) 09/03/17 07:05 Hct 43.2 % (35.5-45.6) 09/03/17 07:05 MCV 103 fl (84-94) H 09/03/17 07:05 MCH 35 pg (28-32) H 09/03/17 07:05 MCHC 33 % (32-34) 09/03/17 07:05 RDW 17.1 % (13.2-15.2) H 09/03/17 07:05 Plt Count 70 K/mm3 (140-440) L 09/03/17 07:05 Lymph % (Auto) 22.8 % (13.4-35.0) 09/02/17 09:24 [place] % (Auto) 9.4 % (0.0-7.3) H 09/02/17 09:24 Eos % (Auto) 1.1 % (0.0-4.3) 09/02/17 09:24 Baso % (Auto) 0.8 % (0.0-1.8) 09/02/17 09:24 Lymph # 1.1 K/mm3 (1.2-5.4) L 09/02/17 09:24 [place] # 0.5 K/mm3 (0.0-0.8) 09/02/17 09:24 Eos # 0.1 K/mm3 (0.0-0.4) 09/02/17 09:24 Baso # 0.0 K/mm3 (0.0-0.1) 09/02/17 09:24 Seg Neutrophils % 65.9 % (40.0-70.0) 09/02/17 09:24 Seg Neutrophils # 3.3 K/mm3 (1.8-7.7) 09/02/17 09:24 PT 13.1 Sec. (12.2-14.9) 09/02/17 09:24 INR 0.95 (0.87-1.13) 09/02/17 09:24 APTT 28.1 Sec. (24.2-36.6) 09/02/17 09:24 Sodium 138 mmol/L (137-145) 09/01/17 12:57 Potassium 3.9 mmol/L (3.6-5.0) 09/01/17 12:57 Chloride 93.4 mmol/L (98-107) L 09/01/17 12:57 Carbon Dioxide 25 mmol/L (22-30) 09/01/17 12:57 Anion Gap 24 mmol/L 09/01/17 12:57 BUN 6 mg/dL (9-20) L 09/01/17 12:57 Creatinine 0.5 mg/dL (0.8-1.5) L 09/01/17 12:57 Estimated GFR > 60 ml/min 09/01/17 12:57 BUN/Creatinine Ratio 12 % 09/01/17 12:57 Glucose 97 mg/dL (75-100) 09/01/17 12:57 Calcium 8.7 mg/dL (8.4-10.2) 09/01/17 12:57 Magnesium 2.00 mg/dL (1.7-2.3) 09/01/17 12:57 Total Bilirubin 1.20 mg/dL (0.1-1.2) 09/01/17 12:57 Direct Bilirubin 0.5 mg/dL (0-0.2) H 09/01/17 12:57 Indirect Bilirubin 0.7 mg/dL 09/01/17 12:57 AST 144 units/L (5-40) H 09/01/17 12:57 ALT 29 units/L (7-56) 09/01/17 12:57 Alkaline Phosphatase 194 units/L (35-129) H 09/01/17 12:57 NT-Pro-B Natriuret Pep 91.84 pg/mL (0-900) 09/01/17 12:57 Total Protein 7.1 g/dL (6.3-8.2) 09/01/17 12:57 Albumin 3.2 g/dL (3.9-5) L 09/01/17 12:57 Albumin/Globulin Ratio 0.8 % 09/01/17 12:57 Urine Color Yellow (Yellow) 09/01/17 13:35 Urine Turbidity Clear (Clear) 09/01/17 13:35 Urine pH 6.0 (5.0-7.0) 09/01/17 13:35 Ur Specific [place] 1.008 (1.003-1.030) 09/01/17 13:35 Urine Protein <15 mg/dl mg/dL (Negative) 09/01/17 13:35 Urine Glucose (UA) Neg mg/dL (Negative) 09/01/17 13:35 Urine Ketones Neg mg/dL (Negative) 09/01/17 13:35 Urine Blood Neg (Negative) 09/01/17 13:35 Urine Nitrite Neg (Negative) 09/01/17 13:35 Urine Bilirubin Neg (Negative) 09/01/17 13:35 Urine Urobilinogen 2.0 mg/dL (<2.0) 09/01/17 13:35 Ur Leukocyte Esterase Neg (Negative) 09/01/17 13:35 Urine WBC (Auto) 1.0 /HPF (0.0-6.0) 09/01/17 13:35 Urine RBC (Auto) 1.0 /HPF (0.0-6.0) 09/01/17 13:35 Blood Type O POSITIVE 09/01/17 12:57 Antibody Screen Negative 09/01/17 12:57 <PAMELA CATALAN - Last Filed: 09/03/17 15:41> Assessment and Plan Assessment and plan: Patient is a 67 years old Male with Lung Cancer, ETOH Abuse, cirrhosis, Liver disease, Nicotine Dependence presents to ED for evaluation. Tachycardia Started on metoprolol Remote Tele Left Pleural effusion IR consulted US Thoracentesis done and 2L of body fluid removed. Pulmonary following Pneumothorax Xray showed 40 % left-sided pneumothorax Pulmonary following Acute respiratory failure with hypoxia Patient oxygen saturation improved with 2LNC; currently SPO2 98%. No acute respiratory distress noted. Aggressive Nebulizers/Inhalers ABG when necessary Oxygen supplement Supportive care Metastatic lung cancer Metastatic Cancer with Left Pleural Effusion: Pulmonary consulted, supplemental Nebulizers/Inhalers IR consulted for thoracentesis, Alcohol abuse CIWA protoco Continue thiamine, folic acid, multivitamin Supportive care Malnutition Nutritional consult Alcoholic cirrhosis Fluid restriction supportive care, Hypertensive urgency Continue home antihypertensive medications Closely monitor blood pressure DVT prophylaxis Heparin History Interval history: Patient denies having any pain;chest pain, heart palpitation. Labs and nursing notes reviewed. Hospitalist Physical - Constitutional Vitals: Temp Pulse Resp BP Pulse Ox 98.5 F 85 20 91/65 98 09/03/17 11:20 09/03/17 11:20 09/03/17 11:20 09/03/17 11:20 09/03/17 11:20 General appearance: Present: mild distress - EENT Eyes: Present: PERRL ENT: hearing intact - Neck Neck: Present: supple - Respiratory Respiratory effort: normal Respiratory: bilateral: CTA - Cardiovascular Rhythm: regular Heart Sounds: Present: S1 & S2 - Abdominal General gastrointestinal: soft, non-tender - Integumentary Integumentary: Present: clear, warm, dry - Psychiatric Psychiatric: appropriate mood/affect - Neurologic Neurologic: moves all extremities - Allied Health Allied health notes reviewed: nursing Results - Labs CBC & Chem 7: 09/03/17 07:05 09/01/17 12:57 Labs: Laboratory Last Values WBC 6.7 K/mm3 (4.5-11.0) 09/03/17 07:05 RBC 4.18 M/mm3 (3.65-5.03) 09/03/17 07:05 Hgb 14.4 gm/dl (11.8-15.2) 09/03/17 07:05 Hct 43.2 % (35.5-45.6) 09/03/17 07:05 MCV 103 fl (84-94) H 09/03/17 07:05 MCH 35 pg (28-32) H 09/03/17 07:05 MCHC 33 % (32-34) 09/03/17 07:05 RDW 17.1 % (13.2-15.2) H 09/03/17 07:05 Plt Count 70 K/mm3 (140-440) L 09/03/17 07:05 Lymph % (Auto) 22.8 % (13.4-35.0) 09/02/17 09:24 [place] % (Auto) 9.4 % (0.0-7.3) H 09/02/17 09:24 Eos % (Auto) 1.1 % (0.0-4.3) 09/02/17 09:24 Baso % (Auto) 0.8 % (0.0-1.8) 09/02/17 09:24 Lymph # 1.1 K/mm3 (1.2-5.4) L 09/02/17 09:24 [place] # 0.5 K/mm3 (0.0-0.8) 09/02/17 09:24 Eos # 0.1 K/mm3 (0.0-0.4) 09/02/17 09:24 Baso # 0.0 K/mm3 (0.0-0.1) 09/02/17 09:24 Seg Neutrophils % 65.9 % (40.0-70.0) 09/02/17 09:24 Seg Neutrophils # 3.3 K/mm3 (1.8-7.7) 09/02/17 09:24 PT 13.1 Sec. (12.2-14.9) 09/02/17 09:24 INR 0.95 (0.87-1.13) 09/02/17 09:24 APTT 28.1 Sec. (24.2-36.6) 09/02/17 09:24 Sodium 138 mmol/L (137-145) 09/01/17 12:57 Potassium 3.9 mmol/L (3.6-5.0) 09/01/17 12:57 Chloride 93.4 mmol/L (98-107) L 09/01/17 12:57 Carbon Dioxide 25 mmol/L (22-30) 09/01/17 12:57 Anion Gap 24 mmol/L 09/01/17 12:57 BUN 6 mg/dL (9-20) L 09/01/17 12:57 Creatinine 0.5 mg/dL (0.8-1.5) L 09/01/17 12:57 Estimated GFR > 60 ml/min 09/01/17 12:57 BUN/Creatinine Ratio 12 % 09/01/17 12:57 Glucose 97 mg/dL (75-100) 09/01/17 12:57 Calcium 8.7 mg/dL (8.4-10.2) 09/01/17 12:57 Magnesium 2.00 mg/dL (1.7-2.3) 09/01/17 12:57 Total Bilirubin 1.20 mg/dL (0.1-1.2) 09/01/17 12:57 Direct Bilirubin 0.5 mg/dL (0-0.2) H 09/01/17 12:57 Indirect Bilirubin 0.7 mg/dL 09/01/17 12:57 AST 144 units/L (5-40) H 09/01/17 12:57 ALT 29 units/L (7-56) 09/01/17 12:57 Alkaline Phosphatase 194 units/L (35-129) H 09/01/17 12:57 NT-Pro-B Natriuret Pep 91.84 pg/mL (0-900) 09/01/17 12:57 Total Protein 7.1 g/dL (6.3-8.2) 09/01/17 12:57 Albumin 3.2 g/dL (3.9-5) L 09/01/17 12:57 Albumin/Globulin Ratio 0.8 % 09/01/17 12:57 Urine Color Yellow (Yellow) 09/01/17 13:35 Urine Turbidity Clear (Clear) 09/01/17 13:35 Urine pH 6.0 (5.0-7.0) 09/01/17 13:35 Ur Specific [place] 1.008 (1.003-1.030) 09/01/17 13:35 Urine Protein <15 mg/dl mg/dL (Negative) 09/01/17 13:35 Urine Glucose (UA) Neg mg/dL (Negative) 09/01/17 13:35 Urine Ketones Neg mg/dL (Negative) 09/01/17 13:35 Urine Blood Neg (Negative) 09/01/17 13:35 Urine Nitrite Neg (Negative) 09/01/17 13:35 Urine Bilirubin Neg (Negative) 09/01/17 13:35 Urine Urobilinogen 2.0 mg/dL (<2.0) 09/01/17 13:35 Ur Leukocyte Esterase Neg (Negative) 09/01/17 13:35 Urine WBC (Auto) 1.0 /HPF (0.0-6.0) 09/01/17 13:35 Urine RBC (Auto) 1.0 /HPF (0.0-6.0) 09/01/17 13:35 Blood Type O POSITIVE 09/01/17 12:57 Antibody Screen Negative 09/01/17 12:57
--- NOTE | 2017-09-03 12:35 | Event Note ---
Date: 09/03/17 I was called by Majo Grady, last night aroud 0130 am in regards to a tension PTX. At the time, I had no access to a computer to see films or review the chart. Per Dr. Perez, the patient had a PTX with tension and needed a chest tube. Dr. Perez had not evaluated the patient prior to speaking with me. I asked Dr. Perez, when the CXR was done and she said at 0900 when in fact after reviewing the chart, it was done at 16:30 after the radiologist here had performed the thoracentesis. Why this was not addressed earlier in the evening I cannot explain. I asked Dr. Perez if the patient was in significant distress and as I have already stated she had not evaluated the patient. I asked her to at least evalute the patient and to call me back. I received no call back from her. From review it appears that several individuals prior to the call placed to me were aware of this PTX and there was no concern at that time. The patient had been evaluated earlier that day and was asymptomatic, and the on- call physician, Dr. Perez had no calls about the patient prior the call about the results of the imaging study. I also cannot understand why this report was read so late and called in so late. This is trapped lung or unexpandable lung. There is evidence of pleural thickening even seen on CXR. This PTX does not require emergent treatment. I am available for questions or concerns if needed.
--- NOTE | 2017-09-04 08:47 | Hem/Onc Progress Note ---
Assessment and Plan Patient seems to be stable. I have discussed the case with Dr. loving the patient 's oncologist. Patient will follow-up with him. He is currently on immunotherapy. We will sign off Subjective Date of service: 09/04/17 Interval history: pt states he wants to go home. his sob has improved. events noted. Was confused last night- better repeat cxr unchanged. Objective - Exam Narrative Exam: Cachectic - Constitutional Vitals: Last Vital Signs Temp 97.5 F L 09/04/17 07:16 Pulse 115 H 09/04/17 07:16 Resp 20 09/04/17 07:16 BP 104/76 09/04/17 07:16 Pulse Ox 97 09/04/17 07:16 General appearance: no acute distress Performance status: 3-limited selfcare - Neck Neck: supple - Respiratory Respiratory: left: diminished - Cardiovascular Rhythm: regular Extremities: No edema
[2017-09-04] MEDS ORDERED: HALDOL IV PRN (08:53)
[2017-09-04] MEDS ORDERED: LIBRIUM PO PRN ×2 (08:53)
--- NOTE | 2017-09-04 09:03 | Progress Note ---
Assessment and Plan Assessment and plan: Patient is a 67 years old Male with Lung Cancer, ETOH Abuse, cirrhosis, Liver disease, Nicotine Dependence presents to ED for evaluation. Acute respiratory failure with hypoxia Patient oxygen saturation improved with 2LNC; currently SPO2 98%. No acute respiratory distress noted. Aggressive Nebulizers/Inhalers ABG when necessary Oxygen supplement Supportive care Pneumothorax Xray showed 40% left-sided pneumothorax Pulmonary consulted and recommended no emergent treatment at this time. Closely monitor Pleural effusion on left US guided paracentesis done and 2L of body fluid removed IR consulted, Pulmonary following Tachycardia Most likely dehydration VS alcohol withdrawal Placed on remote tele Started on metoprolol Metastatic lung cancer Metastatic Cancer with Left Pleural Effusion: Pulmonary consulted, supplemental Nebulizers/Inhalers IR consulted for thoracentesis, Alcohol abuse CIWA protoco Continue thiamine, folic acid, multivitamin Supportive care Malnutition Nutritional consult Alcoholic cirrhosis Fluid restriction supportive care, Hypertensive urgency Continue home antihypertensive medications Closely monitor blood pressure DVT prophylaxis Heparin History Interval history: Patient denies having any pain; Labs and nursing notes reviewed. Hospitalist Physical - Constitutional Vitals: Temp Pulse Resp BP Pulse Ox 97.5 F L 115 H 20 104/76 97 09/04/17 07:16 09/04/17 07:16 09/04/17 07:16 09/04/17 07:16 09/04/17 07:16 General appearance: Present: mild distress - EENT Eyes: Present: PERRL ENT: hearing intact - Neck Neck: Present: supple - Respiratory Respiratory effort: normal Respiratory: bilateral: diminished - Cardiovascular Rhythm: regular Heart Sounds: Present: S1 & S2 - Abdominal General gastrointestinal: soft, non-tender - Integumentary Integumentary: Present: clear, warm, dry - Psychiatric Psychiatric: appropriate mood/affect - Neurologic Neurologic: moves all extremities - Allied Health Allied health notes reviewed: nursing Results - Labs CBC & Chem 7: 09/03/17 07:05 09/01/17 12:57 Labs: Laboratory Last Values WBC 6.7 K/mm3 (4.5-11.0) 09/03/17 07:05 RBC 4.18 M/mm3 (3.65-5.03) 09/03/17 07:05 Hgb 14.4 gm/dl (11.8-15.2) 09/03/17 07:05 Hct 43.2 % (35.5-45.6) 09/03/17 07:05 MCV 103 fl (84-94) H 09/03/17 07:05 MCH 35 pg (28-32) H 09/03/17 07:05 MCHC 33 % (32-34) 09/03/17 07:05 RDW 17.1 % (13.2-15.2) H 09/03/17 07:05 Plt Count 70 K/mm3 (140-440) L 09/03/17 07:05 Lymph % (Auto) 22.8 % (13.4-35.0) 09/02/17 09:24 [place] % (Auto) 9.4 % (0.0-7.3) H 09/02/17 09:24 Eos % (Auto) 1.1 % (0.0-4.3) 09/02/17 09:24 Baso % (Auto) 0.8 % (0.0-1.8) 09/02/17 09:24 Lymph # 1.1 K/mm3 (1.2-5.4) L 09/02/17 09:24 [place] # 0.5 K/mm3 (0.0-0.8) 09/02/17 09:24 Eos # 0.1 K/mm3 (0.0-0.4) 09/02/17 09:24 Baso # 0.0 K/mm3 (0.0-0.1) 09/02/17 09:24 Seg Neutrophils % 65.9 % (40.0-70.0) 09/02/17 09:24 Seg Neutrophils # 3.3 K/mm3 (1.8-7.7) 09/02/17 09:24 PT 13.1 Sec. (12.2-14.9) 09/02/17 09:24 INR 0.95 (0.87-1.13) 09/02/17 09:24 APTT 28.1 Sec. (24.2-36.6) 09/02/17 09:24 Sodium 138 mmol/L (137-145) 09/01/17 12:57 Potassium 3.9 mmol/L (3.6-5.0) 09/01/17 12:57 Chloride 93.4 mmol/L (98-107) L 09/01/17 12:57 Carbon Dioxide 25 mmol/L (22-30) 09/01/17 12:57 Anion Gap 24 mmol/L 09/01/17 12:57 BUN 6 mg/dL (9-20) L 09/01/17 12:57 Creatinine 0.5 mg/dL (0.8-1.5) L 09/01/17 12:57 Estimated GFR > 60 ml/min 09/01/17 12:57 BUN/Creatinine Ratio 12 % 09/01/17 12:57 Glucose 97 mg/dL (75-100) 09/01/17 12:57 Calcium 8.7 mg/dL (8.4-10.2) 09/01/17 12:57 Magnesium 2.00 mg/dL (1.7-2.3) 09/01/17 12:57 Total Bilirubin 1.20 mg/dL (0.1-1.2) 09/01/17 12:57 Direct Bilirubin 0.5 mg/dL (0-0.2) H 09/01/17 12:57 Indirect Bilirubin 0.7 mg/dL 09/01/17 12:57 AST 144 units/L (5-40) H 09/01/17 12:57 ALT 29 units/L (7-56) 09/01/17 12:57 Alkaline Phosphatase 194 units/L (35-129) H 09/01/17 12:57 NT-Pro-B Natriuret Pep 91.84 pg/mL (0-900) 09/01/17 12:57 Total Protein 7.1 g/dL (6.3-8.2) 09/01/17 12:57 Albumin 3.2 g/dL (3.9-5) L 09/01/17 12:57 Albumin/Globulin Ratio 0.8 % 09/01/17 12:57 Urine Color Yellow (Yellow) 09/01/17 13:35 Urine Turbidity Clear (Clear) 09/01/17 13:35 Urine pH 6.0 (5.0-7.0) 09/01/17 13:35 Ur Specific [place] 1.008 (1.003-1.030) 09/01/17 13:35 Urine Protein <15 mg/dl mg/dL (Negative) 09/01/17 13:35 Urine Glucose (UA) Neg mg/dL (Negative) 09/01/17 13:35 Urine Ketones Neg mg/dL (Negative) 09/01/17 13:35 Urine Blood Neg (Negative) 09/01/17 13:35 Urine Nitrite Neg (Negative) 09/01/17 13:35 Urine Bilirubin Neg (Negative) 09/01/17 13:35 Urine Urobilinogen 2.0 mg/dL (<2.0) 09/01/17 13:35 Ur Leukocyte Esterase Neg (Negative) 09/01/17 13:35 Urine WBC (Auto) 1.0 /HPF (0.0-6.0) 09/01/17 13:35 Urine RBC (Auto) 1.0 /HPF (0.0-6.0) 09/01/17 13:35 Blood Type O POSITIVE 09/01/17 12:57 Antibody Screen Negative 09/01/17 12:57
[2017-09-04] MEDS: VITAMIN B-1 PO SCH (09:53)
[2017-09-04] MEDS: LOPRESSOR PO SCH (09:53)
[2017-09-04] MEDS: FOLVITE PO SCH (09:54)
[2017-09-04] MEDS: THERAGRAN Tab PO SCH (09:54)
[2017-09-04 13:17] VITALS: BP 103/72
--- NOTE | 2017-09-04 13:59 | Discharge Summary ---
Providers - Providers Date of Admission: 09/01/17 15:27 Date of discharge: 09/04/17 Attending physician: MARITZA GR 09/01/17 16:34 Consult to Physician [CONS] Routine Consulting Provider: BAKARI YOUNG Reason For Exam: lung cancer Place consult to:: dr. young Notified:: answering service Phone number called:: Was contact made?: Yes If yes, spoke with:: conor Time called:: 19:12 09/02/17 08:56 Consult to Dietitian/Nutrition [CONS] Routine Physician Instructions: Reason For Exam: Reason for Consult: Malnutrition Primary care physician: MARITZA MCKEON Hospitalization Reason for admission: Pleural effusion Condition: Good Hospital course: Patient is a 67 years old Male with Lung Cancer, ETOH Abuse, cirrhosis, Liver disease, Nicotine Dependence presents to ED for evaluation. Patient was diagnosed with Acute respiratory failure with hypoxia,Tachycardia, Metastatic lung cancer,Pneumothorax and Pleural effusion on left. Xray showed 40 % left-sided pneumothorax. Pulmonary consulted and recommended no emergent treatment at this time. Xray showed left lower effusion. US guided paracentesis done and 2L of body fluid was removed. He is being with oral thiamin and folic acid upon discharge. Patient clinically improved and stable for discharge. Patient was advised to follow up within a week of discharge with Dr. GARCIA. Discharge Diagnosed Pneumothorax Pleural effusion on left Tachycardia Metastatic lung cancer Alcohol abuse Alcoholic cirrhosis Disposition: DC-01 TO HOME OR SELFCARE Time spent for discharge: 35 minutes Core Measure Documentation - Palliative Care Palliative Care/ Comfort Measures: Not Applicable - Core Measures Any of the following diagnoses?: none Exam - Constitutional Vitals: Temp Pulse Resp BP Pulse Ox 97.8 F 91 H 16 103/72 97 09/04/17 12:14 09/04/17 12:14 09/04/17 12:14 09/04/17 12:14 09/04/17 12:14 General appearance: Present: no acute distress - EENT Eyes: Present: PERRL ENT: hearing intact - Neck Neck: Present: supple - Respiratory Respiratory effort: normal Respiratory: bilateral: CTA - Cardiovascular Rhythm: regular Heart Sounds: Present: S1 & S2 - Abdominal General gastrointestinal: Present: soft, non-tender Male genitourinary: Present: deferred - Rectal Rectal Exam: deferred - Integumentary Integumentary: Present: clear, warm, dry - Musculoskeletal Musculoskeletal: strength equal bilaterally - Psychiatric Psychiatric: appropriate mood/affect - Neurologic Neurologic: moves all extremities - Allied Health Allied health notes reviewed: nursing Plan Diet: low fat, low cholesterol, low salt Follow up with: MARITZA MCKEON MD [Primary Care Provider] - 7 Days BAKARI YOUNG MD [Staff Physician] - 7 Days Prescriptions: Folic Acid [Folvite] 1 mg PO QDAY #30 tablet Multivitamin Tab [Multiple Vitamin TAB (Theragran)] 1 each PO QDAY #30 tablet Thiamine [Vitamin B-1] 100 mg PO QDAY #30 tablet
== END 2017-09-04 15:30 | disposition home or self-care (01) | DRG 180 ==
LOC: ED 11:53 → 3A 15:27
PROVIDERS: ADMIT Internal Medicine; ATTEND Internal Medicine
PROC: 0W9B3ZZ Drainage of Left Pleural Cavity, Percutaneous Approach (ICD-10-PCS; principal; 2017-09-02)
DX: C34.90 Malignant neoplasm of unspecified part of unspecified bronchus or lung (principal); J96.01 Acute respiratory failure with hypoxia; J93.9 Pneumothorax, unspecified; J90 Pleural effusion, not elsewhere classified; E46 Unspecified protein-calorie malnutrition; Z68.1 Body mass index [BMI] 19.9 or less, adult; F17.200 Nicotine dependence, unspecified, uncomplicated; D69.6 Thrombocytopenia, unspecified; F10.10 Alcohol abuse, uncomplicated; K70.30 Alcoholic cirrhosis of liver without ascites; I16.0 Hypertensive urgency; R00.0 Tachycardia, unspecified; Z90.49 Acquired absence of other specified parts of digestive tract; Z82.49 Family history of ischemic heart disease and other diseases of the circulatory system
CPT/HCPCS: 32555; 36415; 70470; 71010; 80048; 80074; 81001; 83735; 83880; 85025; 85027; 85610; 85730; 86850; 86900; 86901; 88112; 88305; 88341; 88342; 93005; 93010; J2060; J2270; Q9967